=== PATIENT | female | born 1995 | race African-American/Black ===

== ENCOUNTER 2018-01-21 03:45 | Inpatient (IN) ==
[2018-01-21] MEDS ORDERED: KETOROLAC 30 MG/1 ML VIAL IV STA (04:10)
[2018-01-21] MEDS ORDERED: PANTOPRAZOLE 40 MG VIAL IV STA (04:10)
[2018-01-21] MEDS ORDERED: ONDANSETRON 4 MG/2 ML VIAL IV STA (04:10)
[2018-01-21] MEDS ORDERED: SODIUM CHLORIDE 0.9% 500 ML IV STA (04:10)
[2018-01-21] MEDS ORDERED: ALUM/MAG/SIMETH/LIDO VISC 1:1 30 ML BOTTLE PO STA (04:10)
[2018-01-21 04:41] LABS: Basophils % 0.2 % (0.0-0.8); Eosinophils % 0.4 % (0.00-10.9); Hematocrit 35.1 VOL% (35.7-47.0); Hemoglobin 11.6 GM/DL (12.0-16.0); Immature Granulocytes % 0.3 %; Immature Granulocytes Absolute 0.03 #; Lymphocytes # 3.4 10*3/uL (1.4-4.0); Lymphocytes % 34.3 % (21.3-54.2); Mean Corpuscular Hemoglobin 30 PG (27-34); Mean Corpuscular Volume 90.7 FL (87-102); Mean Platelet Volume 11.3 FL (9.6-12.0); Monocytes # 0.8 10*3/uL (0.11-0.8); Monocytes % 8.1 % (1.7-12.7); Neutrophils # 5.6 10*3/uL (1.4-7.4); Neutrophils % 56.7 % (38.7-73.9); Platelet Count 252 T/CUMM (130-400); Red Blood Count 3.87 MC/CUMM (3.8-5.5); Red Cell Distribution Width 12.2 % (9.3-17.3); White Blood Count 9.9 T/CUMM (4-12)
[2018-01-21 05:04] LABS: Alanine Aminotransferase 30 U/L (13-56); Albumin 3.3 G/DL (3.4-5.0); Alkaline Phosphatase 103 U/L (45-117); Amylase 78 U/L (25-115); Aspartate Amino Transferase 19 U/L (0-37); Bilirubin,Total < 0.39 MG/DL (0.2-1.0); Blood Urea Nitrogen 15 MG/DL (7-18); Calcium 8.8 MG/DL (8.5-10.1); Glucose 101 MG/DL (74-106); Osmolality,Calculated 281.3 MOS/KG (273-304); Potassium 3.7 MMOL/L (3.5-5.1); Sodium 141 MMOL/L (136-145); Total Protein 7.3 G/DL (6.4-8.3)
[2018-01-21 05:28] LABS: Apearance,Urine CLEAR (Clear); Bilirubin,Urine Negative (Negative); Blood, Urine Negative (Negative); Glucose,Urine (UA) Negative (Negative); Ketones,Urine Negative (Negative); Mucus,Urine Occasional /LPF (Occasional); Nitrite,Urine Negative (Negative); Protein,Urine Negative; RBC,Urine 1 /HPF (0-4); Squamous Epithelial Cell,Urine Occasional /HPF (0-10); Urine Color Yellow (Yellow); Urine Specific Gravity 1.023 (1.001-1.035); WBC,Urine <1 /HPF (0-6)
[2018-01-21] MEDS ORDERED: PIPERACILLIN/TAZOBACTAM 3,375 MG in SODIUM CHLORIDE 0.9% 100 ML IV STA (06:07)
[2018-01-21] MEDS ORDERED: ACETAMINOPHEN 325 MG TABLET PO PRN (06:45)
[2018-01-21] MEDS ORDERED: PIPERACILLIN/TAZOBACTAM 3,375 MG in SODIUM CHLORIDE 0.9% 100 ML IV SCH (06:45)
[2018-01-21] MEDS: HYDROmorphone 2 MG/1 ML VIAL IV PRN ×3 (07:34→19:33)
[2018-01-21] MEDS: SODIUM CHLORIDE 0.9% 1,000 ML IV SCH ×2 (07:37→19:34)
[2018-01-21] MEDS: PANTOPRAZOLE 40 MG VIAL IV SCH (09:01)
[2018-01-21] MEDS ORDERED: LACTATED RINGERS 1,000 ML IV SCH (10:30)
[2018-01-21] MEDS ORDERED: LIDOCAINE 1%/EPI INJ 20 ML VIAL ONE (10:35)
[2018-01-21] MEDS ORDERED: TISSUE ADHESIVE 1 EACH APPLICATOR TOP ONE (10:35)
[2018-01-21] MEDS ORDERED: SUGAMMADEX 200 MG/2 ML VIAL IV ONE (12:58)
[2018-01-21] MEDS ORDERED: PROPOFOL 200 MG/20 ML VIAL IV ONE (13:56)
[2018-01-21] MEDS ORDERED: DESFLURANE 1 UNIT/15 MINUTE INH ONE (13:56)
[2018-01-21] MEDS ORDERED: NEOSTIGMINE 10 MG/10 ML VIAL ONE (13:57)
[2018-01-21] MEDS ORDERED: MIDAZOLAM 2 MG/2 ML VIAL ONE (13:57)
[2018-01-21] MEDS ORDERED: ROCURONIUM 100 MG/10 ML VIAL IV ONE (13:57)
[2018-01-21] MEDS ORDERED: ACETAMINOPHEN 1,000 MG/100 ML VIAL IV ONE (13:57)
[2018-01-21] MEDS ORDERED: KETOROLAC 30 MG/1 ML VIAL ONE (13:57)
[2018-01-21] MEDS ORDERED: fentaNYL 100 MCG/2 ML VIAL ONE (13:57)
[2018-01-21] MEDS ORDERED: GLYCOPYRROLATE 0.4 MG/2 ML VIAL ONE (13:57)
[2018-01-21] MEDS: ONDANSETRON 4 MG/2 ML VIAL IV PRN (15:14)
[2018-01-22] MEDS: ONDANSETRON 4 MG/2 ML VIAL IV PRN (01:03)
[2018-01-22] MEDS: HYDROmorphone 2 MG/1 ML VIAL IV PRN (01:04)
[2018-01-22] MEDS: SODIUM CHLORIDE 0.9% 1,000 ML IV SCH ×2 (03:48→08:06)
[2018-01-22] MEDS: PANTOPRAZOLE 40 MG VIAL IV SCH (09:59)
[2018-01-22 11:20] VITALS: BP 110/56
== END 2018-01-22 13:00 | disposition home or self-care (01) | DRG 419 ==
LOC: N.ED 03:45 → N.EDINP 06:03 → N.3E 06:44
PROVIDERS: ADMIT Surgery; ATTEND Surgery
PROC: LAPCHOL (2018-01-21 09:20)